=== PATIENT | male | born 1975 | race Caucasian/White ===

== ENCOUNTER 2021-01-13 10:44 | Emergency (ER) | payer OTHER, SELFPAY ==
[2021-01-13 11:09] VITALS: BP 114/99; PULSE 100; RESP 18; TEMP 36.4; O2SAT 99
--- NOTE | 2021-01-13 11:09 | ED.URI ---
HPI - URI/Sore Throat General Chief Complaint: Upper Respiratory Infection Stated Complaint: Throat Time Seen by Provider: 01/13/21 11:09 Source: patient Mode of arrival: ambulatory Limitations: no limitations History of Present Illness HPI Narrative: Jeff Cortes is a 45 yo male with a PNH of CHF, HTN, who [facility] with complaints of sore throat x2 days. 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 He is a cardiac cath technician. He has a lot of difficulty controlling his blood pressure and chooses not to take any additional medication, even though he is complaining of feeling like there is groundglass in his throat , prednisone is not an option, as well as any of the minor antihistamines that are used to control allergies Related Data Home Medications Medication Instructions Recorded Confirmed dapagliflozin [Farxiga] 10 mg DAILY 01/13/21 01/13/21 fenofibrate nanocrystallized 48 mg PO BID 01/13/21 01/13/21 ivabradine [Corlanor] 5 mg DAILY 01/13/21 01/13/21 metoprolol succinate 150 mg PO BID 01/13/21 01/13/21 sacubitril-valsartan [Entresto] 97 - 103 tablet DAILY 01/13/21 01/13/21 spironolactone 25 mg DAILY 01/13/21 01/13/21 Allergies Allergy/AdvReac Type Severity Reaction Status Date / Time No Known Allergies Allergy Mild Verified 11/16/09 17:19 Review of Systems Review of Systems: Narrative: CONSTITUTIONAL: Denies fever, chills, sweats. EYES: Denies visual changes, redness, discharge. ENT: Denies rhinorrhea, congestion, has sore throat, otalgia. Erythema of the posterior pharynx CARDIOVASCULAR: Denies chest pain, palpitations, edema. RESPIRATORY: Denies dyspnea, wheezing, cough GASTROINTESTINAL: Denies abdominal pain, nausea, vomiting, diarrhea. GENITOURINARY: Denies dysuria, hematuria, abnormal discharge SKIN: Denies rash or itching. NEUROLOGIC: Denies numbness, or focal weakness. PSYCHIATRIC: Denies anxiety or depression. [facility] Past Medical History Medical History Congestive heart failure Hypertension Reduced ejection fraction concurrent with and due to chronic heart failure Family History Family History Other Hypertension Social History Social History (Updated 01/13/21 @ 11:30 by Joana Johnson CNP) Smoking status: Never smoker Alcohol intake: former Gender identity (if verbalized by the patient): Male Comments At time of signature, I agree with nursing past medical, surgical, social and family history. There is no relevant family history pertinent to the presenting complaint. Exam Narrative: Exam Narrative: GENERAL: This is a well-nourished, well-developed patient, in mild distress. HEAD: normocephalic, atraumatic. EYES: Sclera clear/white. Vision is grossly intact. EARS: External ears normal, auditory canals clear and without drainage, TMs normal without perforation. Hearing grossly intact. NOSE: External nose normal without nasal discharge, nares without redness, no rhinorrhea. THROAT: Mucous membranes moist, posterior pharynx erythema NECK: Neck supple, -tender CARDIOVASCULAR: IrRegular rate and rhythm without murmurs, gallops, or rubs. RESPIRATORY: Clear to auscultation. Breath sounds equal bilaterally. No wheezes, rales, or rhonchi. GASTROINTESTINAL: Abdomen soft, non-tender, SKIN: warm, intact with no suspicious lesions or rash, good texture and turgor. NEURO: awake, alert, and oriented to person, place and time. There were no obvious focal neurologic abnormalities. Steady gait EXTREMITIES: Normal range of motion. BACK: Nontender without deformity Course Course Emergency Course: [facility] complaints of sore throat-he has a congenital heart defect and had a cardiac a
== END 2021-01-13 11:37 | disposition home or self-care (01) ==
PROVIDERS: Emergency Provider Nurse Practitioner; PCP Family Medicine
DX: J02.9 Acute pharyngitis, unspecified (principal); I11.0 Hypertensive heart disease with heart failure; I50.9 Heart failure, unspecified
CPT/HCPCS: 87081; 87880; 99213; G0463